=== PATIENT | female | born 1990 | race American Indian/Alaskan Native ===

== ENCOUNTER 2016-09-12 15:15 | Emergency (ER) | payer MEDICAID ==
[2016-09-12 16:28] VITALS: BP 148/74
[2016-09-12 17:34] LABS: Basophils % (Auto) 0.3 % (0.0-1.8); Eosinophils % (Auto) 0.5 % (0.0-4.3); Hematocrit 34.9 % (30.3-42.9); Hemoglobin 11.2 gm/dl (10.1-14.3); Mean Corpuscular HGB Conc 32 % (30-34); Mean Corpuscular Hemoglobin 27 pg (28-32); Mean Corpuscular Volume 85 fl (79-97); Platelet Count 259 K/mm3 (140-440); Red Blood Count 4.11 M/mm3 (3.65-5.03); Red Cell Distribution Width 14.9 % (13.2-15.2); White Blood Count 11.4 K/mm3 (4.5-11.0)
[2016-09-12 17:45] LABS: Alanine Aminotransferase 14 units/L (7-56); Albumin 4.2 g/dL (3.9-5); Albumin/Globulin Ratio 1.1 %; Alkaline Phosphatase 55 units/L (35-129); Anion Gap 19 mmol/L; BUN/Creatinine Ratio 12.85; Bilirubin,Total 0.5 mg/dL (0.1-1.2); Blood Urea Nitrogen 9 mg/dL (7-17); Calcium 8.7 mg/dL (8.4-10.2); Carbon Dioxide 23 mmol/L (22-30); Chloride 99.6 mmol/L (98-107); Glucose 90 mg/dL (65-100); Lipase 19 units/L (13-60); Potassium 4.1 mmol/L (3.6-5.0); Sodium 137 mmol/L (137-145); Total Protein 7.9 g/dL (6.3-8.2)
[2016-09-12 18:36] LABS: Bilirubin,Urine NEG (Negative); Blood,Urine NEG (Negative); Ketones,Urine NEG (Negative); Leukocyte Esterase,Urine NEG (Negative); Mucus,Urine FEW /HPF; Nitrite,Urine NEG (Negative); Protein,Urine <15 mg/dL mg/dL (Negative); Urobilinogen,Urine < 2.0 mg/dL (<2.0); WBC,Urine < 1.0 /HPF (0.0-6.0)
[2016-09-13] MEDS ORDERED: VERSED/NS 100MG/100ML 100 MG/100 ML BAG IV ONE (04:02)
== END 2016-09-12 17:00 | disposition left against medical advice (07) ==
LOC: ED 15:15
DX: R10.9 Unspecified abdominal pain (principal); Z53.21 Procedure and treatment not carried out due to patient leaving prior to being seen by health care provider
CPT/HCPCS: 36415; 80053; 81001; 83690; 84703; 85025; J2250